=== PATIENT | female | born 1940 | race African-American/Black ===

== ENCOUNTER 2016-11-16 20:48 | Emergency (ER) | payer OTHER ==
[2016-11-16 20:59] VITALS: BP 150/62; PULSE 77; TEMP 98; BMI 24.3
--- NOTE | 2016-11-16 23:47 | PDOC ---
History of Present Illness - General Chief Complaint: Ear Problem Stated Complaint: HARD TIME HEARING Time Seen by Provider: 11/16/16 23:22 History Source: Patient, Family Exam Limitations: No Limitations - History of Present Illness Initial Comments: 11/16/16 23:40 76yo Female patient presents to ED c/o hearing loss to left ear. Patient states symptoms began a couple weeks ago while talking on house phone. She reports she could hear and switched to right ear which was fine. She denies trauma, pain, or injury. Patient also c/o infected tooth and is requesting abx. Denies fever. Timing/Duration: reports: week Severity: reports: mild Episode Description: See HPI Possible Cause: Yes: no prior episodes Modifying Factors: worse with: activity, albuterol inhaler, albuterol nebulizer , antibiotics, coughing, lying down, oxygen, rest, other Associated Symptoms: denies: denies symptoms, chest pain/soreness, cough, dizziness, earache, facial pain, fever/chills, headache, lightheadedness, muscle aches, nasal congestion, nasal drainage, shortness of breath, sinus infection, sore throat, wheezing, other Aspirin Received prior to arrival: No: no aspirin today, unknown, 81 mg x 1, 81 mg x 2, 81 mg x 3, 81 mg x 4, 325 mg x 1, provided at home, provided by EMS, provided by ED Past History - Travel Traveled outside of the country in the last 30 days: No Close contact w/someone who was outside of country & ill: No - Past Medical History Allergies/Adverse Reactions: Allergies Allergy/AdvReac Type Severity Reaction Status Date / Time No Known Allergies Allergy Verified 11/16/16 20:56 Home Medications: Ambulatory Orders Clindamycin [Cleocin -] 300 mg PO TID #21 capsule 11/16/16 Diabetes: Yes (DM) HTN: Yes - Immunization History Immunization Up to Date: Yes - Psycho/Social/Smoking Cessation Hx Suicidal Ideation: No Smoking History: Never smoked Information on smoking cessation initiated: No Hx Alcohol Use: No Drug/Substance Use Hx: No Substance Use Type: None Review of Systems - Review of Systems Able to Perform ROS?: Yes Is the patient limited Spanish proficient: No Constitutional: No: Chills, Fever HEENTM: Yes: Dental Problems. No: Ear Pain, Ear Discharge, Nose Pain, Nose Congestion, Tinnitus, Throat Pain, Throat Swelling, Mouth Pain, Difficulty Swallowing, Mouth Swelling Respiratory: No: Cough, Shortness of Breath, Stridor, Wheezing Cardiac (ROS): No: Chest Pain, Palpitations, Syncope, Chest Tightness ABD/GI: No: Constipated, Diarrhea, Nausea, Poor Appetite, Poor Fluid Intake, Vomiting : No: Dysuria, Hematuria, Pain Musculoskeletal: No: Back Pain Integumentary: No: Erythema, Pruritus, Rash Neurological: No: Headache, Seizure, Tingling, Tremors, Weakness, Dizziness All Other Systems: Reviewed and Negative *Physical Exam - Vital Signs Last Vital Signs Temp Pulse Resp BP Pulse Ox 98.0 F 77 20 150/62 98 11/16/16 20:56 11/16/16 20:56 11/16/16 20:56 11/16/16 20:56 11/16/16 20:56 - Physical Exam General Appearance: Yes: Nourished, Appropriately Dressed. No: Apparent Distress, Mild Distress, Moderate Distress, Severe Distress HEENT: positive: EOMI, CUCA, Normal ENT Inspection, Normal Voice, Symmetrical, TMs Normal, Pharynx Normal, Hearing Decreased (Lt Ear), Hearing Grossly Normal ( Right Ear). negative: Tonsillar Erythema, Nasal Congestion, Rhinorrhea, Sinus Tenderness, TM Bulging, TM Dull, TM Erythema Neck: positive: Trachea midline, Supple. negative: Decreased range of motion, Stridor, Lymphadenopathy (R), Lymphadenopathy (L), Tender lateral, Tender midline Respiratory/Chest: positive: Lungs Clear, Normal Breath Sounds. negative: Chest Tender, Respiratory Distress, Accessory Muscle Use, Labored Respiration, Rapid RR, Stridor, Wheezing Cardiovascular: positive: Regular Rhythm, Regular Rate. negative: JVD, Murmur Gastrointestinal/Abdominal: positive: Normal Bowel Sounds, Soft. negative: Distended, Guarding, Rebound, Tenderness Musculoskeletal: positive: Normal Inspection. negative: CVA Tenderness Extremity: positive: Normal Capillary Refill, Normal Inspection, Normal Range of Motion. negative: Pedal Edema, Swelling, Calf Tenderness, Erythema, Inflammation Integumentary: positive: Normal Color, Dry, Warm. 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, Fully Oriented, Alert, Normal Mood/ Affect, Normal Response, Motor Strength 5/5 *DC/Admit/Observation/Transfer Diagnosis at time of Disposition: Dental abscess Hearing loss Qualifiers: Hearing loss type: unspecified Laterality: left Qualified Code(s): H91.92 - Unspecified hearing loss, left ear - Discharge Dispostion Disposition: HOME Condition at time of disposition: Unchanged/Unknown Admit: No - Prescriptions Prescriptions: Clindamycin [Cleocin -] 300 mg PO TID #21 capsule - Referrals Referrals: Alexandru Adames MD [Staff Physician] - - Patient Instructions Printed Discharge Instructions: DI for Tooth Decay, DI for Hearing Loss Additional Instructions: FOLLOW UP WITH DR. ADAMES (ENT) THIS WEEK FOR FURTHER EVALUATION. CALL TO SCHEDULE APPOINTMENT. TAKE MEDICATIONS PRESCRIBED. RETURN IF ANY CONCERNS FOR FURTHER EVALUATION. Print Language: PORTUGUESE
--- NOTE | 2016-11-16 23:52 | PDOC ---
*Physical Exam - Vital Signs Last Vital Signs Temp Pulse Resp BP Pulse Ox 98.0 F 77 20 150/62 98 11/16/16 20:56 11/16/16 20:56 11/16/16 20:56 11/16/16 20:56 11/16/16 20:56 Medical Decision Making - Medical Decision Making 11/16/16 23:51 agree with care from [facility] *DC/Admit/Observation/Transfer Diagnosis at time of Disposition: Dental abscess Hearing loss Qualifiers: Hearing loss type: unspecified Laterality: left Qualified Code(s): H91.92 - Unspecified hearing loss, left ear - Prescriptions Prescriptions: Clindamycin [Cleocin -] 300 mg PO TID #21 capsule - Referrals Referrals: Alexandru Adames MD [Staff Physician] - - Patient Instructions Printed Discharge Instructions: DI for Tooth Decay, DI for Hearing Loss Additional Instructions: FOLLOW UP WITH DR. ADAMES (ENT) THIS WEEK FOR FURTHER EVALUATION. CALL TO SCHEDULE APPOINTMENT. TAKE MEDICATIONS PRESCRIBED. RETURN IF ANY CONCERNS FOR FURTHER EVALUATION. Print Language: ISRAELI - Post Discharge Activity
== END 2016-11-17 00:03 | disposition home or self-care (01) ==
LOC: JER 20:48 → JERFT 20:48 → JER 11-17 00:03
DX: H91.92 Unspecified hearing loss, left ear (principal); K04.7 Periapical abscess without sinus; E11.9 Type 2 diabetes mellitus without complications; I10 Essential (primary) hypertension
CPT/HCPCS: 99281-25

== ENCOUNTER 2021-09-15 10:54 | Inpatient (IN) | payer OTHER ==
[2021-09-15] MEDS ORDERED: dilTIAZem HCL 50 MG/10 ML - 10 ML VIAL IVPUSH ONE ×3 (11:24→13:10)
[2021-09-15] MEDS ORDERED: ALBUTEROL SO4 2.5/IPRATROPIUM 0.5 INH SOL 3 ML VIAL.NEB. NEB ONE ×2 (11:25→11:29)
[2021-09-15] MEDS ORDERED: SODIUM CHLORIDE 0.9% 500 ML INFUS.BAG IV ONE ×2 (11:25→17:11)
[2021-09-15] MEDS ORDERED: dilTIAZem HCL 125 MG/25 ML - 25 ML VIAL ONE (11:30)
[2021-09-15 11:47] VITALS: BMI 18.6
[2021-09-15 12:00] LABS: VENOUS O2 SATURATION 68.5 % (70-80); VENOUS PCO2 38.4 mmHg (38-52); VENOUS PH 7.288 (7.310-7.410)
[2021-09-15] MEDS: HEPARIN INFUSION - 25,000 UNITS/500 ML INFUS.BAG IVPB SCH (12:00)
[2021-09-15 12:03] LABS: BASO % 0.1 % (0-2.0); HEMATOCRIT 28.7 % (32.4-45.2); HEMOGLOBIN 9.4 GM/dL (10.7-15.3); LYMPH % 7.9 % (8-40); MCH 28.9 pg (25.7-33.7); MCHC 32.9 g/dl (32.0-36.0); MEAN PLT VOLUME 9.9 fl (7.5-11.1); PLATELET COUNT 418 10^3/uL (134-434); RBC 3.26 M/mm3 (3.60-5.2); RDW 13.7 % (11.6-15.6); WHITE BLOOD COUNT 12.8 K/mm3 (4.0-10.0)
[2021-09-15 12:13] LABS: INR 1.28 (0.83-1.09); PROTHROMBIN TIME (PATIENT) 14.7 SEC (9.7-13.0)
[2021-09-15 12:21] LABS: CHLORIDE 101 mmol/L (98-107); SODIUM 134 mmol/L (136-145)
[2021-09-15 12:24] LABS: ALBUMIN 2.9 g/dl (3.4-5.0); ANION GAP 13 MMOL/L (8-16); BLOOD UREA NITROGEN 65.3 mg/dL (7-18); CO2 21 mmol/L (21-32); MAGNESIUM 2.4 mg/dL (1.8-2.4)
[2021-09-15 12:27] LABS: BILIRUBIN,TOTAL 0.7 mg/dL (0.2-1); PHOSPHOROUS 5.4 mg/dL (2.5-4.9); SGOT/AST 83 U/L (15-37); SGPT/ALT 48 U/L (13-61); TOT PROT 7.1 g/dl (6.4-8.2)
[2021-09-15 12:28] LABS: ALK PHOS 71 U/L (45-117)
[2021-09-15] MEDS ORDERED: ACETAMINOPHEN 1000 MG/100 ML BAG IVPB ONE (12:29)
[2021-09-15 12:40] LABS: GLUCOSE,RANDOM 411 mg/dL (74-106)
[2021-09-15 12:44] LABS: N-TERMINAL BNP 75955.6 pg/ml (5-450)
[2021-09-15] MEDS ORDERED: ASPIRIN 81 MG CHEWABLE TABLETS PO ONE ×2 (12:58→13:36)
[2021-09-15] MEDS ORDERED: HEPARIN NA (PORCINE) 5,000 UNITS/ML 1ML VIAL IVPUSH ONE ×2 (13:02→13:36)
[2021-09-15] MEDS ORDERED: HEPARIN NA (PORCINE) 5,000 UNITS/ML 1ML VIAL IVPUSH PRN ×6 (13:02→22:18)
[2021-09-15] MEDS ORDERED: HEPARIN INFUSION - 25,000 UNITS/500 ML INFUS.BAG IVPB SCH (13:15)
[2021-09-15] MEDS ORDERED: ASPIRIN 81 MG CHEWABLE TABLETS ONE (13:28)
[2021-09-15] MEDS ORDERED: ACETAMINOPHEN INJECTION 100 ML IVPB ONE (13:28)
[2021-09-15] MEDS ORDERED: HEPARIN INFUSION - 25,000 UNITS/500 ML INFUS.BAG IVPB ONE (13:29)
[2021-09-15] MEDS ORDERED: HEPARIN NA (PORCINE) 5,000 UNITS/ML 1ML VIAL ONE (13:29)
[2021-09-15] MEDS ORDERED: dilTIAZem HCL 50 MG/10 ML - 10 ML VIAL ONE (13:30)
[2021-09-15 14:38] LABS: BILIRUBIN,DIRECT 0.2 mg/dL (0.0-0.2)
[2021-09-15 14:44] LABS: LACTIC ACID 4.3 mmol/L (0.4-2.0)
[2021-09-15 15:01] LABS: ARTERIAL BLD GAS O2 SATURATION 92.6 % (95-98); ARTERIAL BLOOD GAS PO2 67.1 mmHg (80-100); ARTERIAL BLOOD GAS pH 7.338 (7.350-7.450)
[2021-09-15] MEDS ORDERED: DEXAMETHASONE SOD PHOSPHATE 4 MG/1 ML VIAL IVPUSH ONE (15:18)
[2021-09-15] MEDS ORDERED: DEXTROSE 5%-WATER 100 ML IVPB ONE ×2 (17:21→22:11)
[2021-09-15] MEDS ORDERED: PIPERACILLIN/TAZOBACTAM 4.5 GM VIAL IVPB ONE ×2 (17:21→22:11)
[2021-09-15] MEDS ORDERED: LORazepam 2 MG/ML SDV VIAL IVPUSH ONE (17:30)
[2021-09-15] MEDS: PIPERACILLIN/TAZOB 4.5 GM 4.5 GM in DEXTROSE 5%-WATER 100 ML IVPB SCH ×2 (17:38→22:21)
[2021-09-15] MEDS ORDERED: PIPERACILLIN/TAZOB 3.375 GM 3.375 GM in DEXTROSE 5%-WATER - 50 ML IVPB SCH (18:00)
[2021-09-15] MEDS: INSULIN SLIDING SCALE (NOVOLOG) 1 VIAL SQ SCH ×2 (18:14→22:20)
[2021-09-15 18:22] LABS: CHLORIDE 105 mmol/L (98-107); SODIUM 136 mmol/L (136-145)
[2021-09-15 18:24] LABS: ALBUMIN 2.8 g/dl (3.4-5.0); ANION GAP 15 MMOL/L (8-16); BLOOD UREA NITROGEN 78.3 mg/dL (7-18); CALCIUM 8.5 mg/dL (8.5-10.1); CO2 16 mmol/L (21-32); GLUCOSE,RANDOM 359 mg/dL (74-106)
[2021-09-15 18:26] LABS: SGPT/ALT 48 U/L (13-61)
[2021-09-15 18:27] LABS: SGOT/AST 67 U/L (15-37)
[2021-09-15 18:28] LABS: BILIRUBIN,TOTAL 0.4 mg/dL (0.2-1)
[2021-09-15 18:29] LABS: ALK PHOS 66 U/L (45-117)
[2021-09-15] MEDS ORDERED: RAPID SEQUENCE INTUBATION KIT NR ONE (18:47)
[2021-09-15] MEDS ORDERED: MIDAZOLAM IN 0.9 % SOD.CHLORID 1 MG/1 ML PLAST..BAG ONE (18:52)
[2021-09-15] MEDS ORDERED: PHENYLEPHRINE HCL 10 MG/1 ML SINGLE DOSE VIAL ONE (19:05)
[2021-09-15] MEDS ORDERED: FENTANYL NS IVPB 500 MCG/100 ML BAG IVPB SCH (19:30)
[2021-09-15] MEDS ORDERED: MIDAZOLAM 100 MG in SODIUM CHLORIDE 100 ML IVPB SCH (19:45)
[2021-09-15 20:45] LABS: ARTERIAL BLD GAS O2 SATURATION 87.2 % (95-98); ARTERIAL BLOOD GAS BASE EXCESS -10.8 mmol/L (-2-2); ARTERIAL BLOOD GAS PO2 63.5 mmHg (80-100)
[2021-09-15 20:47] LABS: ALLENS TEST POSITIVE
[2021-09-15 20:48] LABS: VENT MODE A/C; VENT RATE 16
[2021-09-15 20:49] LABS: ARTERIAL BLOOD GAS pH 7.198 (7.350-7.450)
[2021-09-15] MEDS: CHLORHEXIDINE GLUCONATE 4% CLEANSER FOR DECOLONIZATION TP SCH (22:20)
[2021-09-15] MEDS: METOPROLOL TARTRATE 50 MG TABLET (FP) PO SCH (22:20)
[2021-09-15] MEDS: MUPIROCIN 2% TOPICAL OINTMENT FOR DECOLONIZATION NS SCH (22:20)
[2021-09-15] MEDS: METHIMAZOLE 10 MG TABLET PO SCH (22:21)
[2021-09-15 22:22] LABS: URINE APPEARANCE CLEAR; URINE BILIRUBIN NEGATIVE (NEGATIVE); URINE COLOR YELLOW; URINE GLUCOSE (UA) NEGATIVE (NEGATIVE); URINE KETONE TRACE (NEGATIVE); URINE LEUK ESTERASE NEGATIVE (NEGATIVE); URINE NITRITE NEGATIVE (NEGATIVE); URINE PROTEIN NEGATIVE (NEGATIVE); URINE UROBILINOGEN 0.2 mg/dL (0.2-1.0)
[2021-09-15] MEDS: HYDROCORTISONE SOD SUCCINATE 100 MG/2 ML VIAL IVPB SCH (22:31)
[2021-09-16] MEDS: METHIMAZOLE 10 MG TABLET PO SCH ×2 (05:15→10:11)
[2021-09-16 05:30] LABS: INR 1.19 (0.83-1.09); PROTHROMBIN TIME (PATIENT) 13.7 SEC (9.7-13.0)
[2021-09-16 05:31] LABS: ACTIVATED PTT 75.7 SECONDS (25.2-36.5)
[2021-09-16] MEDS: INSULIN SLIDING SCALE (NOVOLOG) 1 VIAL SQ SCH ×4 (06:22→22:15)
[2021-09-16 07:21] LABS: BASO % 0.1 % (0-2.0); HEMATOCRIT 24.2 % (32.4-45.2); LYMPH % 6.1 % (8-40); MCH 29.3 pg (25.7-33.7); MCHC 33.1 g/dl (32.0-36.0); MEAN CELL VOLUME 88.6 fl (80-96); MEAN PLT VOLUME 9.6 fl (7.5-11.1); MONO % 9.1 % (3.8-10.2); NEUT % 84.7 % (42.8-82.8); PLATELET COUNT 282 10^3/uL (134-434); RBC 2.73 M/mm3 (3.60-5.2); RDW 13.6 % (11.6-15.6); WHITE BLOOD COUNT 12.7 K/mm3 (4.0-10.0)
[2021-09-16 07:26] LABS: INR 1.23 (0.83-1.09); PROTHROMBIN TIME (PATIENT) 14.2 SEC (9.7-13.0)
[2021-09-16 07:29] LABS: ACTIVATED PTT 66.4 SECONDS (25.2-36.5)
[2021-09-16 07:37] LABS: BLOOD UREA NITROGEN 90.8 mg/dL (7-18); CALCIUM 7.6 mg/dL (8.5-10.1); MAGNESIUM 2.4 mg/dL (1.8-2.4)
[2021-09-16 07:40] LABS: PHOSPHOROUS 6.8 mg/dL (2.5-4.9)
[2021-09-16] MEDS ORDERED: SODIUM CHLORIDE 0.9% 1000 ML INFUS.BAG IV ONE (07:55)
[2021-09-16] MEDS: HYDROCORTISONE SOD SUCCINATE 100 MG/2 ML VIAL IVPB SCH ×3 (08:09→22:15)
[2021-09-16 09:58] LABS: ARTERIAL BLD GAS O2 SATURATION 99.1 % (95-98); ARTERIAL BLOOD GAS BASE EXCESS -9.5 mmol/L (-2-2); ARTERIAL BLOOD GAS PO2 175.5 mmHg (80-100)
[2021-09-16] MEDS: MUPIROCIN 2% TOPICAL OINTMENT FOR DECOLONIZATION NS SCH ×2 (10:09→22:15)
[2021-09-16] MEDS: METOPROLOL TARTRATE 50 MG TABLET (FP) PO SCH (10:09)
[2021-09-16] MEDS ORDERED: NOREPINEPHRINE BITARTRATE 4 MG/4 ML ML IV ONE ×3 (10:58→23:54)
[2021-09-16] MEDS ORDERED: ATROPINE SULFATE 1 MG/10 ML DISP.SYRIN IVPUSH ONE (11:00)
[2021-09-16] MEDS: NOREPINEPHRINE D5W PREMIX 16,000 MCG/500 ML BAG IVPB SCH ×2 (11:00→11:05)
[2021-09-16] MEDS ORDERED: GLUCAGON 1 MG KIT IVPUSH ONE (11:13)
[2021-09-16] MEDS ORDERED: SODIUM CHLORIDE 1,000 ML IV STA (11:22)
[2021-09-16] MEDS ORDERED: SODIUM CHLORIDE 1,000 ML IV SCH (13:15)
[2021-09-16] MEDS ORDERED: CEFTRIAXONE 1 GM in DEXTROSE 5%-WATER - 50 ML IVPB SCH (13:30)
[2021-09-16] MEDS ORDERED: DEXTROSE 5%-WATER - 50 ML IVPB ONE (13:30)
[2021-09-16] MEDS ORDERED: cefTRIAXone SODIUM 1 GM VIAL ONE (13:30)
[2021-09-16] MEDS ORDERED: METOPROLOL TARTRATE 50 MG TABLET (FP) PO SCH (14:00)
[2021-09-16] MEDS ORDERED: POTASSIUM IODIDE 1G/ML SSKI 30 ML DROPSBTL PO SCH (14:00)
[2021-09-16] MEDS: PIPERACILLIN/TAZOB 4.5 GM 4.5 GM in DEXTROSE 5%-WATER 100 ML IVPB SCH (14:15)
[2021-09-16] MEDS: HEPARIN INFUSION - 25,000 UNITS/500 ML INFUS.BAG IVPB SCH (17:05)
[2021-09-16] MEDS ORDERED: VASOPRESSIN 40 UNITS/100 ML BAG IV SCH (21:30)
[2021-09-16] MEDS: CHLORHEXIDINE GLUCONATE 4% CLEANSER FOR DECOLONIZATION TP SCH (22:15)
[2021-09-16 22:41] LABS: HEMATOCRIT 22.9 % (32.4-45.2); HEMOGLOBIN 7.2 GM/dL (10.7-15.3); MCH 28.8 pg (25.7-33.7); MCHC 31.6 g/dl (32.0-36.0); MEAN PLT VOLUME 9.2 fl (7.5-11.1); PLATELET COUNT 163 10^3/uL (134-434); RBC 2.52 M/mm3 (3.60-5.2); RDW 13.9 % (11.6-15.6); WHITE BLOOD COUNT 14.7 K/mm3 (4.0-10.0)
[2021-09-16 23:00] LABS: CHLORIDE 104 mmol/L (98-107); SODIUM 138 mmol/L (136-145)
[2021-09-16 23:02] LABS: BLOOD UREA NITROGEN 88.1 mg/dL (7-18); CO2 12 mmol/L (21-32); GLUCOSE,RANDOM 160 mg/dL (74-106)
[2021-09-16 23:05] LABS: CREATININE 4.1 mg/dL (0.55-1.3)
[2021-09-16 23:12] LABS: ANION GAP 22 MMOL/L (8-16); CALCIUM 6.4 mg/dL (8.5-10.1)
[2021-09-16] MEDS ORDERED: MIDAZOLAM IN 0.9 % SOD.CHLORID 1 MG/1 ML PLAST..BAG ONE (23:20)
[2021-09-16 23:33] VITALS: BP 151/66; PULSE 66
[2021-09-16] MEDS ORDERED: CALCIUM GLUCONATE 10% - 1,000 MG/10 ML VIAL IVPB ONE (23:35)
[2021-09-16] MEDS ORDERED: INSULIN REGULAR HUMAN 100 UNITS/ML *VIAL IVPUSH ONE (23:36)
[2021-09-16] MEDS ORDERED: DEXTROSE 50%-WATER - 25 GM/50 ML VIAL IVPUSH ONE (23:36)
[2021-09-16 23:40] VITALS: TEMP 97.3
[2021-09-17 07:08] LABS: SARS-CoV-2 NAA Not Detected (Not Detected)
[2021-09-17] MEDS ORDERED: METHIMAZOLE 10 MG TABLET PO SCH (10:00)
== END 2021-09-17 00:05 | disposition expired | DRG 208 ==
LOC: JER 10:54 → JERBED 11:37 → JICU 15:30
PROVIDERS: ADMIT Internal Medicine Pulmonary Disease; ATTEND Internal Medicine Pulmonary Disease
PROC: 5A1945Z Respiratory Ventilation, 24-96 Consecutive Hours (ICD-10-PCS; principal; 2021-09-15)
PROC: 0BH17EZ Insertion of Endotracheal Airway into Trachea, Via Natural or Artificial Opening (ICD-10-PCS; 2021-09-15)
PROC: 05HM33Z Insertion of Infusion Device into Right Internal Jugular Vein, Percutaneous Approach (ICD-10-PCS; 2021-09-16)
PROC: B543ZZA Ultrasonography of Right Jugular Veins, Guidance (ICD-10-PCS; 2021-09-16)
PROC: 4A133B1 Monitoring of Arterial Pressure, Peripheral, Percutaneous Approach (ICD-10-PCS; 2021-09-16)
PROC: 5A12012 Performance of Cardiac Output, Single, Manual (ICD-10-PCS; 2021-09-17)
DX: J80 Acute respiratory distress syndrome (principal); E05.31 Thyrotoxicosis from ectopic thyroid tissue with thyrotoxic crisis or storm; J18.9 Pneumonia, unspecified organism; I21.4 Non-ST elevation (NSTEMI) myocardial infarction; E87.2 Acidosis; N17.9 Acute kidney failure, unspecified; R64 Cachexia; Z68.1 Body mass index [BMI] 19.9 or less, adult; I48.91 Unspecified atrial fibrillation; I46.9 Cardiac arrest, cause unspecified; I95.9 Hypotension, unspecified; E11.9 Type 2 diabetes mellitus without complications; E78.5 Hyperlipidemia, unspecified; F17.210 Nicotine dependence, cigarettes, uncomplicated; I10 Essential (primary) hypertension; R00.1 Bradycardia, unspecified
CPT/HCPCS: 36415; 36600; 71045-TC-FY; 80048; 80053; 81003; 82010; 82248; 82728; 82803; 82962; 83036; 83605; 83615; 83735; 83880; 84100; 84436; 84439; 84443; 84481; 84484; 85025; 85027; 85610; 85730; 86140; 87040; 87086; 87804; 93005; 93010; 93306-TC; 94002; 94660; 99291; C9803-CS; J1644; J3490; U0003; U0005